=== PATIENT | female | born 1950 | race Two or more races ===

== ENCOUNTER 2018-06-16 09:21 | Outpatient (CLI) | payer OTHER | END 2018-06-16 09:24 | disposition home or self-care (01) | LOC: SONOGRAMA 09:21 | DX: E04.1 Nontoxic single thyroid nodule (principal) ==

== ENCOUNTER 2024-10-02 12:45 | Inpatient (IN) | payer OTHER ==
[~2024-10-02] VITALS: Ht 157.5 cm; Wt 45.8 kg
[2024-10-02] MEDS ORDERED: DIOVAN160 M1 PO (13:41)
[2024-10-02] MEDS ORDERED: BISOPROLOL FUMAR5 MG PO (13:42)
[2024-10-11] MEDS ORDERED: CEFTRIAXONE SODIUM 2,000 MG VIAL ONE (10:39)
[2024-10-11] MEDS ORDERED: METRONIDAZOLE/SODIUM CHLORIDE 500 MG/100 ML PIGGYBACK IV ONE (10:39)
[2024-10-11] MEDS ORDERED: BUPIVACAINE HCL/MPF 0.5% 30ML VIAL ONE (12:54)
[2024-10-11] MEDS ORDERED: LIDOCAINE HCL 1%/EPINEPHRINE 20ML VIAL IJ ONE (12:54)
[2024-10-11] MEDS ORDERED: OxyCODONE HCL 5 MG TABLET (ROXICODONE) PO PRN (17:00)
[2024-10-11] MEDS ORDERED: ONDANSETRON HCL 2 MG/ML VIAL IV PRN (17:00)
[2024-10-11] MEDS ORDERED: GABAPENTIN 300 MG CAPSULE PO SCH (17:00)
[2024-10-11] MEDS ORDERED: MORPHINE SULFATE 4 MG/ML CARTRIDGE IV PRN (17:00)
[2024-10-11] MEDS ORDERED: SIMETHICONE 125 MG CAPSULE PO SCH (17:00)
[2024-10-11] MEDS ORDERED: METOCLOPRAMIDE HCL 5 MG/ML VIAL IV SCH (17:00)
[2024-10-11] MEDS ORDERED: HYOSCYAMINE SULFATE 0.125 MG TAB.SUBL SL SCH (17:00)
[2024-10-11] MEDS ORDERED: ENALAPRILAT DIHYDRATE 1.25 MG/ML VIAL IV PRN (17:45)
[2024-10-11] MEDS ORDERED: MORPHINE SULFATE 2 MG/ML CARTRIDGE IV ONE ×2 (18:00→18:30)
[2024-10-11] MEDS ORDERED: ACETAMINOPHEN 500 MG GEL..CAP PO SCH (20:00)
[2024-10-11] MEDS ORDERED: FAMOTIDINE/PF 20 MG/2 ML VIAL IV PUSH SCH (21:00)
[2024-10-11] MEDS ORDERED: PATIENTS OWN MEDICATION (MEDICAMENTO EN PISO) PO SCH (21:00)
[2024-10-11 22:22] VITALS: BP 183/79; O2SAT 95
[2024-10-11 22:28] VITALS: O2SAT 96
[2024-10-11 22:49] LABS: ABG PH 7.358 (7.35-7.45); ABG pCO2 38.4 mmHg (35-45); BASE EXCESS -3.9 mmol/l; BICARBONATE 21.1 mmol/l (23-25); SaO2 94.9 %; Tco2 22.3 mmol/l; allen test SATISFACTORY; mode ROOM AIR; o2 21 %; puncture site RADIAL LEFT
[2024-10-11 22:50] LABS: ABG PO2 79.6 mmHg (80-100)
[2024-10-11 23:16] LABS: HEMOGLOBIN 14.2 g/dL (12.0-15.00); MEAN CELL VOLUME 88.7 fL (80.00-100.00); MEAN CORPUSCULAR HEMOGLOBIN 29.2 pg (27.00-32.0); MEAN CORPUSCULAR HGB CONC 32.9 g/dl (32.0-36.0); PLATELET COUNT 248 K/uL (150-450); RED BLOOD COUNT 4.85 M/uL (4.00-6.00); RED CELL DISTRIBUTION WIDTH 12.7 % (11.5-14.5)
[2024-10-12] VITALS (10 sets, daily range): BP systolic 100–151; BP diastolic 63–79; O2SAT 86–97
[2024-10-12 06:53] LABS: HEMATOCRIT 39.8 % (36.0-45.00); HEMOGLOBIN 13.6 g/dL (12.0-15.00); MEAN CELL VOLUME 87.6 fL (80.00-100.00); MEAN CORPUSCULAR HGB CONC 34.2 g/dl (32.0-36.0); PLATELET COUNT 208 K/uL (150-450); RED BLOOD COUNT 4.54 M/uL (4.00-6.00); RED CELL DISTRIBUTION WIDTH 12.8 % (11.5-14.5)
[2024-10-12 07:22] LABS: ALBUMIN 3.1 gm/dL (3.4-5.0); CALCIUM 8.7 mg/dL (8.5-10.1); CREATININE SERUM 0.71 mg/dL (0.55-1.02); GFR 80.69; MAGNESIUM 1.7 mg/dL (1.8-2.4); PHOSPHOROUS 3.1 mg/dL (2.5-4.9); POTASSIUM 4.03 mEq/L (3.5-5.1)
[2024-10-12] MEDS ORDERED: PIPERACILLIN/TAZOBACTAM SODIUM 3.375 GM in 0.9 % SODIUM CHLORIDE 100 ML IV SCH (07:51)
[2024-10-12] MEDS ORDERED: PATIENTS OWN MEDICATION (MEDICAMENTO EN PISO) PO SCH (09:00)
[2024-10-12] MEDS ORDERED: LACTOBACILLUS ACIDOPHILUS 1 CAP CAP PO SCH (09:00)
[2024-10-12] MEDS ORDERED: MAGNESIUM SULFATE IN WATER 50 ML IV NR (09:15)
[2024-10-12] MEDS ORDERED: ENOXAPARIN SODIUM 40 MG/0.4 ML SYRINGE SUBCUTANEO SCH (17:00)
[2024-10-13] VITALS (9 sets, daily range): BP systolic 101–149; BP diastolic 69–76; O2SAT 90–97
[2024-10-13 07:06] LABS: HEMATOCRIT 34.4 % (36.0-45.00); HEMOGLOBIN 11.5 g/dL (12.0-15.00); MEAN CELL VOLUME 88.2 fL (80.00-100.00); MEAN CORPUSCULAR HEMOGLOBIN 29.4 pg (27.00-32.0); MEAN CORPUSCULAR HGB CONC 33.4 g/dl (32.0-36.0); PLATELET COUNT 197 K/uL (150-450)
[2024-10-13 07:35] LABS: CALCIUM 8.6 mg/dL (8.5-10.1); CREATININE SERUM 0.84 mg/dL (0.55-1.02); GFR 66.46; MAGNESIUM 2.3 mg/dL (1.8-2.4); PHOSPHOROUS 2.7 mg/dL (2.5-4.9); POTASSIUM 4.12 mEq/L (3.5-5.1)
[2024-10-13] MEDS ORDERED: ENOXAPARIN SODIUM 40 MG/0.4 ML SYRINGE SUBCUTANEO SCH (09:00)
[2024-10-13 16:01] LABS: HEMATOCRIT 28.1 % (36.0-45.00); HEMOGLOBIN 9.7 g/dL (12.0-15.00); MEAN CELL VOLUME 87.8 fL (80.00-100.00); MEAN CORPUSCULAR HEMOGLOBIN 30.4 pg (27.00-32.0); MEAN CORPUSCULAR HGB CONC 34.6 g/dl (32.0-36.0); PLATELET COUNT 164 K/uL (150-450); RED CELL DISTRIBUTION WIDTH 13.5 % (11.5-14.5)
[2024-10-13] MEDS ORDERED: VANCOMYCIN HCL 1,000 MG VIAL ONE ×2 (16:56→22:41)
[2024-10-13] MEDS ORDERED: VANCOMYCIN HCL 1,000 MG VIAL IV SCH (17:00)
[2024-10-13] MEDS ORDERED: POLYETHYLENE GLYCOL 3350 17 GM BLIST.PACK PO SCH (17:00)
[2024-10-13] MEDS ORDERED: AMINOCAPROIC ACID 250 MG/ML VIAL IV STA (18:22)
[2024-10-13] MEDS ORDERED: AMINOCAPROIC ACID 20 MG/ML ML IV ONE (18:30)
[2024-10-13] MEDS ORDERED: MEROPENEM 500 MG/VIAL VIAL IV SCH (20:00)
[2024-10-13] MEDS ORDERED: SOD FERRIC GLUC COMPLX/SUCROSE 62.5 MG in 0.9 % SODIUM CHLORIDE 50 ML IV NR (20:00)
[2024-10-13] MEDS ORDERED: Cyanocobalamin/Mecobalamin 1 TAB.SL SL NR (20:00)
[2024-10-13] MEDS ORDERED: FAMOtidine 20 MG TABLET PO SCH (21:00)
[2024-10-13 21:21] LABS: C-REACTIVE PROTEIN 26.1 MG/DL (0.00-0.29); TSH 2.17 uIU/mL (0.358-3.74)
[2024-10-14] VITALS (11 sets, daily range): BP systolic 133–180; BP diastolic 64–98; O2SAT 84–96
[2024-10-14] MEDS ORDERED: SOD FERRIC GLUC COMPLX/SUCROSE 62.5 MG in 0.9 % SODIUM CHLORIDE 50 ML IV SCH (09:00)
[2024-10-14 09:35] LABS: HEMATOCRIT 31.5 % (36.0-45.00); HEMOGLOBIN 10.7 g/dL (12.0-15.00); MEAN CELL VOLUME 86.9 fL (80.00-100.00); MEAN CORPUSCULAR HEMOGLOBIN 29.4 pg (27.00-32.0); MEAN CORPUSCULAR HGB CONC 33.8 g/dl (32.0-36.0); PLATELET COUNT 201 K/uL (150-450); RED BLOOD COUNT 3.63 M/uL (4.00-6.00); RED CELL DISTRIBUTION WIDTH 13.3 % (11.5-14.5)
[2024-10-14 10:24] LABS: CALCIUM 8.2 mg/dL (8.5-10.1); CREATININE SERUM 0.78 mg/dL (0.55-1.02); GFR 72.39; MAGNESIUM 1.8 mg/dL (1.8-2.4); POTASSIUM 3.51 mEq/L (3.5-5.1)
[2024-10-14] MEDS ORDERED: POTASSIUM PHOS,M-BASIC-D-BASIC 15 MM in 0.9 % SODIUM CHLORIDE 250 ML IV NR (13:30)
[2024-10-14] MEDS ORDERED: VANCOMYCIN HCL 1,000 MG VIAL ONE (14:23)
[2024-10-14] MEDS ORDERED: FLUCONAZOLE IN NACL,ISO-OSM 200 MG/100 ML PIGGYBAG IV STA (16:16)
[2024-10-14] MEDS ORDERED: Cyanocobalamin/Mecobalamin 1 TAB.SL SL SCH (17:00)
[2024-10-14] MEDS ORDERED: LINEZOLID IN DEXTROSE 5% 300 ML IV SCH (21:00)
[2024-10-15] VITALS (8 sets, daily range): BP systolic 155–180; BP diastolic 60–90; O2SAT 90–99
[2024-10-15] MEDS ORDERED: FLUCONAZOLE IN NACL,ISO-OSM 100 ML IV SCH (17:00)
[2024-10-16] VITALS (10 sets, daily range): BP systolic 114–170; BP diastolic 64–85; O2SAT 87–98
[2024-10-16] MEDS ORDERED: OxyCODONE HCL 5 MG TABLET (ROXICODONE) PO PRN (04:45)
[2024-10-16 06:29] LABS: HEMATOCRIT 29.7 % (36.0-45.00); HEMOGLOBIN 10.5 g/dL (12.0-15.00); MEAN CORPUSCULAR HEMOGLOBIN 30.3 pg (27.00-32.0); MEAN CORPUSCULAR HGB CONC 35.2 g/dl (32.0-36.0); PLATELET COUNT 239 K/uL (150-450); RED BLOOD COUNT 3.46 M/uL (4.00-6.00); RED CELL DISTRIBUTION WIDTH 13.4 % (11.5-14.5)
[2024-10-16 07:09] LABS: ALBUMIN 2.5 gm/dL (3.4-5.0); BILIRUBIN TOTAL 0.66 mg/dL (0.3-1.2); CALCIUM 8.7 mg/dL (8.5-10.1); CREATININE SERUM 0.7 mg/dL (0.55-1.02); GFR 82.02; GLOBULINA 3.3 G/DL (2.4-3.5); POTASSIUM 4.37 mEq/L (3.5-5.1); TOTAL PROTEIN 5.8 gm/dL (6.4-8.2)
[2024-10-16] MEDS ORDERED: ENOXAPARIN SODIUM 40 MG/0.4 ML SYRINGE SUBCUTANEO STA (11:46)
[2024-10-16] MEDS ORDERED: FLUCONAZOLE 200 MG TABLET PO SCH (17:00)
[2024-10-16] MEDS ORDERED: HYOSCYAMINE SULFATE 0.125 MG TAB.SUBL SL PRN (18:07)
[2024-10-16] MEDS ORDERED: LINEZOLID 600 MG TABLET PO SCH (21:00)
[2024-10-17] VITALS (10 sets, daily range): BP systolic 120–167; BP diastolic 70–80; O2SAT 90–99
[2024-10-18] VITALS: O2SAT 100
[2024-10-18 00:28] VITALS: BP 146/75; O2SAT 93
[2024-10-18 06:56] LABS: HEMATOCRIT 28.9 % (36.0-45.00); HEMOGLOBIN 9.9 g/dL (12.0-15.00); MEAN CELL VOLUME 88.4 fL (80.00-100.00); MEAN CORPUSCULAR HEMOGLOBIN 30.2 pg (27.00-32.0); MEAN CORPUSCULAR HGB CONC 34.2 g/dl (32.0-36.0); PLATELET COUNT 268 K/uL (150-450); RED BLOOD COUNT 3.26 M/uL (4.00-6.00); RED CELL DISTRIBUTION WIDTH 13.3 % (11.5-14.5)
[2024-10-18 08:00] VITALS: BP 154/84; O2SAT 95
[2024-10-18 09:34] LABS: CALCIUM 8.8 mg/dL (8.5-10.1); CREATININE SERUM 0.62 mg/dL (0.55-1.02); GFR 94.35; MAGNESIUM 2.1 mg/dL (1.8-2.4); PHOSPHOROUS 3.7 mg/dL (2.5-4.9); POTASSIUM 4.37 mEq/L (3.5-5.1)
[2024-10-18 09:45] LABS: C-REACTIVE PROTEIN 7.82 MG/DL (0.00-0.29)
[2024-10-18 09:55] VITALS: O2SAT 90
[2024-10-18 18:16] VITALS: BP 161/75; O2SAT 97
[2024-10-19 00:46] VITALS: BP 158/81; O2SAT 96
[2024-10-19] MEDS ORDERED: AMOX-CLAV 875-1 EACH PO (08:17)
[2024-10-19] MEDS ORDERED: HYOSCYAMINE0.125 M1 SL (08:17)
[2024-10-19] MEDS ORDERED: INTESTINEX680 M1 PO (08:17)
[2024-10-19] MEDS ORDERED: Diflucan 200MG TABLE PO (08:17)
[2024-10-19 09:49] VITALS: BP 139/84; O2SAT 96
== END 2024-10-19 11:21 | disposition home or self-care (01) | DRG 329 ==
LOC: O/R 10-11 09:41 → SURG 10-11 12:45
PROVIDERS: Internal Medicine; Internal Medicine Geriatric Medicine; ADMIT Surgery; ATTEND Surgery
PROC: 0DBP4ZZ Excision of Rectum, Percutaneous Endoscopic Approach (ICD-10-PCS; 2024-10-11)
PROC: 0W9H4ZZ Drainage of Retroperitoneum, Percutaneous Endoscopic Approach (ICD-10-PCS; 2024-10-11)
PROC: 0DNW4ZZ Release Peritoneum, Percutaneous Endoscopic Approach (ICD-10-PCS; 2024-10-11)
PROC: 0UB64ZZ Excision of Left Fallopian Tube, Percutaneous Endoscopic Approach (ICD-10-PCS; 2024-10-11)
PROC: 0DJD8ZZ Inspection of Lower Intestinal Tract, Via Natural or Artificial Opening Endoscopic (ICD-10-PCS; 2024-10-11)
PROC: 4A12X4Z Monitoring of Cardiac Electrical Activity, External Approach (ICD-10-PCS; 2024-10-11)
PROC: 0DTN4ZZ Resection of Sigmoid Colon, Percutaneous Endoscopic Approach (ICD-10-PCS; principal; 2024-10-11 15:00)
PROC: BW21ZZZ Computerized Tomography (CT Scan) of Abdomen and Pelvis (ICD-10-PCS; 2024-10-18)
DX: K57.20 Diverticulitis of large intestine with perforation and abscess without bleeding (principal); K65.8 Other peritonitis; N73.8 Other specified female pelvic inflammatory diseases; N73.6 Female pelvic peritoneal adhesions (postinfective); R15.2 Fecal urgency; K62.4 Stenosis of anus and rectum; D72.829 Elevated white blood cell count, unspecified; D64.89 Other specified anemias; I10 Essential (primary) hypertension; G47.30 Sleep apnea, unspecified; Z88.2 Allergy status to sulfonamides